=== PATIENT | male | born 1960 | race Caucasian/White ===

== ENCOUNTER 2023-10-04 12:12 | Emergency (ER) | payer OTHER ==
[~2023-10-04] VITALS: Ht 162.6 cm; Wt 63.5 kg
[2023-10-04 13:50] VITALS: BP_SYST 158; PULSE 70; RESP 18; TEMP 99.1; O2SAT 97
[2023-10-04 16:52] LABS: BILIRUBIN,URINE NEGATIVE (NEGATIVE); BLOOD, URINE 2+ (NEGATIVE); CLARITY/URINE HAZY (CLEAR); COLOR,URINE YELLOW (YELLOW); GLUCOSE,URINE NEGATIVE (NEGATIVE); KETONES,URINE NEGATIVE (NEGATIVE); LEUKOCYTE ESTERASE ,URINE 3+ (NEGATIVE); NITRITE, URINE NEGATIVE (NEGATIVE); PH,URINE 7.5 (5.0-8.0); PROTEIN URINE TRACE (NEGATIVE); UROBILINOGEN,URINE 0.2 (0.2-1.0)
[2023-10-04] MEDS ORDERED: CLOT10TR MM ×3 (17:54→18:21)
[2023-10-04] MEDS ORDERED: CEPH-548 PO ×3 (17:54→18:21)
[2023-10-04] MEDS ORDERED: NOR10 PO ×3 (17:54→18:21)
[2023-10-04 17:56] LABS: BACTERIA,URINE MANY /HPF (None Seen); WBC,URINE >100 /HPF (0-3)
[2023-10-04 17:57] LABS: MUCUS,URINE None Seen /LPF (None Seen); TRIPLE PHOSPHATE CRYSTAL,UR 0-10 /HPF (None Seen)
[2023-10-04 18:26] VITALS: BP_SYST 132; PULSE 68; RESP 16; TEMP 98.2; O2SAT 98
== END 2023-10-04 18:26 | disposition home or self-care (01) ==
LOC: SED 12:12
DX: N39.0 Urinary tract infection, site not specified (principal); B37.0 Candidal stomatitis; I10 Essential (primary) hypertension; R35.0 Frequency of micturition; Z79.899 Other long term (current) drug therapy
CPT/HCPCS: 81000; 81001; 81015; 82962; 87086; 99283